=== PATIENT | female | born 1990 | race Two or more races ===

== ENCOUNTER 2021-07-04 22:34 | Emergency (ER) | payer MEDICAID ==
[~2021-07-04] VITALS: Ht 167.6 cm; Wt 65.0 kg
[2021-07-05] MEDS ORDERED: PREDNISONE 20MG TABLET PO ONE (01:30)
[2021-07-05 01:40] VITALS: BP 112/63
== END 2021-07-05 02:20 | disposition home or self-care (01) ==
LOC: ER 22:34
DX: L50.9 Urticaria, unspecified (principal); R06.2 Wheezing
CPT/HCPCS: 99283; J7512